=== PATIENT | female | born 1985 | race Two or more races ===

== ENCOUNTER 2023-09-16 17:37 | Emergency (ER) | payer MEDICAID ==
[~2023-09-16] VITALS: Ht 157.5 cm; Wt 72.6 kg
[2023-09-16] MEDS ORDERED: ALPRAZOLAM 0.25 MG TABLET ONE (18:00)
[2023-09-16] MEDS: ALPRAZOLAM 0.25 MG TABLET PO ONE (18:08)
[2023-09-16] MEDS: IV NORMAL SALINE 1000 ML BAG IV ONE (18:22)
[2023-09-16 18:37] LABS: BASOPHILS % (AUTO) 0.4 % (0.0-2.0); EOSINOPHILS % (AUTO) 0.3 % (0.0-7.0); HEMATOCRIT 28.9 % (31.2-41.9); HEMOGLOBIN 8.8 g/dL (10.9-14.3); LYMPHOCYTES # (AUTO) 0.8 K/uL (0.8-4.8); LYMPHOCYTES % (AUTO) 8.2 % (20.5-51.5); MEAN CORPUSCULAR HEMOGLOBIN 18.3 uug (24.7-32.8); MEAN CORPUSCULAR HGB CONC 31 g/dL (32.3-35.6); MEAN CORPUSCULAR VOLUME 60.1 fL (75.5-95.3); MONOCYTES # (AUTO) 0.5 K/uL (0.1-1.30); MONOCYTES % (AUTO) 4.7 % (0.0-11.0); NEUTROPHILS # (AUTO) 8.8 K/uL (1.8-8.9); NEUTROPHILS % (AUTO) 86.4 % (38.5-71.5); PLATELET COUNT (AUTO) 248 K/uL (179-408); RED BLOOD CELL COUNT(AUTO) 4.81 MIL/uL (3.63-4.92); WHITE BLOOD COUNT (AUTO) 10.2 K/uL (3.8-11.8)
[2023-09-16 18:42] LABS: DIFFERENTIAL COMMENT 1
[2023-09-16 18:46] LABS: CALCIUM 8.9 mg/dL (8.5-10.1); CARBON DIOXIDE 22 mmol/L (21-32); CHLORIDE 104 mmol/L (98-107); CREATININE 0.6 mg/dL (0.6-1.3); GLUCOSE 110 mg/dL (74-106); POTASSIUM 3.3 mmol/L (3.5-5.1); SODIUM SERUM 140 mmol/L (136-145); UREA NITROGEN, BLOOD 12 mg/dL (7-18)
[2023-09-16 18:58] LABS: NT-PRO BNP 31 pg/mL (0-125)
[2023-09-16 19:23] LABS: ANISOCYTOSIS 1+; HYPOCHROMASIA 1+; LYMPHOCYTES % (MANUAL) 10 % (20-40); MONOCYTES % (MANUAL) 3 % (2-10); NEUTROPHILS % (MANUAL) 87 % (42-75); PLATELET ESTIMATE ADEQUATE
[2023-09-16 19:24] LABS: OVALOCYTES 1+
[2023-09-16 20:05] VITALS: BP 124/73; O2SAT 98
[2023-09-16] MEDS ORDERED: POTASSIUM CHLORIDE 20 MEQ TAB.PRT.SR PO ONE (20:15)
== END 2023-09-16 20:05 | disposition home or self-care (01) ==
LOC: ER 17:39
DX: F41.9 Anxiety disorder, unspecified (principal)
CPT/HCPCS: 36415; 70030-TC; 71045; 84484; 85025; 93005; A4606; A4663; J7040